=== PATIENT | male | born 1985 | race Caucasian/White ===

== ENCOUNTER 2016-07-02 00:59 | Emergency (ER) | payer MEDICAID ==
[~2016-07-02] VITALS: Ht 170.2 cm; Wt 76.0 kg
[2016-07-02 01:03] VITALS: Ht 170.2 cm; Wt 76.0 kg
[2016-07-02] MEDS ORDERED: SULF1TAB31 PO (02:24)
[2016-07-02] MEDS ORDERED: MUPI22OI2 TOP (02:24)
[2016-07-02] MEDS ORDERED: CEPH-443 PO (02:24)
--- NOTE | 2016-07-02 02:28 | ERD ---
ER Documentation Chief Complaint Date/Time DATE: 07/02/16 TIME: 02:25 Chief Complaint cellulitis bilateral thigh possible bug bite HPI 30-year-old male who presents with areas of redness to his bilateral anterior lower extremities. This is been for 6 days. He states he was working in the garden he thinks he got bit by something and since then it has been very itchy and he has been scratching at it and now believes it is infected. Denies any fever. He does state he has had some drainage from it. He is ambulatory. Pain is mild to moderate throbbing in nature. ROS All systems reviewed and are negative except as per history of present illness. Medications Home Meds Active Scripts Cephalexin* (Keflex*) 500 Mg Capsule, 500 MG PO QID for 7 Days, CAP Prov:REMINGTON WINSLOW PA-C 07/02/16 Mupirocin* (Bactroban*) 2% -22 Gram Oint...g., 1 APPLIC TOP BID for 7 Days, EA Prov:REMINGTON WINSLOW PA-C 07/02/16 Sulfamethoxazole/Trimethoprim* (Bactrim Ds* Tablet) 1 Each Tablet, 1 TAB PO BID , #14 TAB Prov:REMINGTON WINSLOW PA-C 07/02/16 Allergies Allergies: Coded Allergies: No Known Allergy (Unverified , 07/02/16) FmHx Family History: No diabetes Physical Exam Vitals Vital Signs Date Time Temp Pulse Resp B/P Pulse Ox O2 Delivery O2 Flow Rate FiO2 07/02/16 01:03 98.7 97 20 173/104 99 Physical Exam Const: [] Head: Atraumatic Eyes: Normal Conjunctiva ENT: Normal External Ears, Nose and Mouth. Neck: Full range of motion..~ No meningismus. Resp: Clear to auscultation bilaterally Cardio: Regular rate and rhythm, no murmurs Abd: Soft, non tender, non distended. Normal bowel sounds Skin: Bilateral anterior lower extremities have multiple areas of excoriation , mild purulent drainage, mild surrounding erythema, mild warmth Procedures/MDM Patient presents with multiple infected wounds on his bilateral lower extremities secondary to scratching at them so much. He thinks he originally from a bug bite 6 days ago when he was in the garden. He is afebrile. Patient' s blood pressure was elevated (>120/80) but appears stable without evidence of hypertension emergency. The patient was counseled about the risks of hypertension and urged to pursue outpatient monitoring and therapy within a week with their primary care physician. Patient was discharged with Keflex, Bactrim, and antibiotic ointment to apply. Recommended this patient follow up with her primary care doctor within 48 hours or return to the emergency room for any worsening of symptoms. However this time I do believe there is suitable for outpatient management. I answered all their questions and they agreed with the plan and were discharged home. Departure Diagnosis: Primary Impression: Infected wound Condition: Stable Patient Instructions: Cellulitis Additional Instructions: Llame al doctor MAANA y ana gautam MARCK PARA DENTRO DE 1-2 MONTEMAYOR.Dgale a la secretaria que nosotros le instruimos hacer esta marck.Avise o llame si thakur condicin se empeora antes de la marck. Regresa aqui si peor o no mejor. REMINGTON WINSLOW PA-C July 02, 2016 02:28
== END 2016-07-02 02:35 | disposition home or self-care (01) ==
LOC: FTE 00:59
DX: L08.9 Local infection of the skin and subcutaneous tissue, unspecified (principal)
CPT/HCPCS: 99284

== ENCOUNTER 2016-07-18 09:36 | Emergency (ER) | payer MEDICAID ==
[~2016-07-18] VITALS: Ht 162.6 cm; Wt 70.5 kg
[~2016-07-18 09:36] MED LIST: CEPH-443 PO; MUPI22OI2 TOP; SULF1TAB31 PO
[2016-07-18 09:40] VITALS: Ht 162.6 cm; Wt 70.5 kg
[2016-07-18] MEDS ORDERED: ONDANSETRON (ODT) 4 MG TAB ODT STA (10:30)
--- NOTE | 2016-07-18 10:37 | ERD ---
ER Documentation Chief Complaint Date/Time DATE: 07/18/16 TIME: 10:36 Chief Complaint vomiting HPI Is a 30-year-old male here with complaints of vomiting 2-3 times nonbilious nonbloody yesterday after eating out. 3 family members with similar complaints only the same thing. No fevers no chills. No abdominal pain. Patient also has what looks to be a skin bacterial skin rash that was treated last week. He said he ran out of the medication skin rash reappeared. Says it is very itchy. No other current issues. ROS All systems reviewed and are negative except as per history of present illness. Medications Home Meds Active Scripts Cephalexin* (Keflex*) 500 Mg Capsule, 500 MG PO QID for 7 Days, CAP Prov:REMINGTON WINSLOW PA-C 07/02/16 Mupirocin* (Bactroban*) 2% -22 Gram Oint...g., 1 APPLIC TOP BID for 7 Days, EA Prov:REMINGTON WINSLOW PA-C 07/02/16 Sulfamethoxazole/Trimethoprim* (Bactrim Ds* Tablet) 1 Each Tablet, 1 TAB PO BID , #14 TAB Prov:REMINGTON WINSLOW PA-C 07/02/16 Allergies Allergies: Coded Allergies: No Known Allergy (Unverified , 07/02/16) PMhx/Soc Medical and Surgical Hx: pt denies Medical Hx, pt denies Surgical Hx Hx Alcohol Use: No Hx Substance Use: No Hx Tobacco Use: No Smoking Status: Never smoker Physical Exam Vitals Vital Signs Date Time Temp Pulse Resp B/P Pulse Ox O2 Delivery O2 Flow Rate FiO2 07/18/16 09:40 98.5 99 20 150/89 99 Physical Exam Const: [] Head: Atraumatic Eyes: Normal Conjunctiva ENT: Normal External Ears, Nose and Mouth. Neck: Full range of motion..~ No meningismus. Resp: Clear to auscultation bilaterally Cardio: Regular rate and rhythm, no murmurs Abd: Soft, non tender, non distended. Normal bowel sounds Skin: Erythematous excoriations on bilateral thighs. No active bleeding noted. Back: No midline or flank tenderness Ext: No cyanosis, or edema Neur: Awake and alert Psych: Normal Mood and Affect Results 24 hrs Current Medications Medications (Trade) Dose Ordered Sig/Christin Route PRN Reason Start Time Stop Time Status Last Admin Dose Admin Ondansetron HCl (Zofran Odt) 4 mg ONCE STAT ODT 07/18/16 10:30 07/18/16 10:31 DC 07/18/16 10:33 Procedures/MDM Medical decision-making: Very pleasant 30-year-old male has gastroenteritis. He has had a separate issue of this skin rash. Patient was started on clindamycin and Bactrim along with topical Polytrim. Follow-up with PCP. Return for worsening symptoms. Return 8 hours for serial abdominal exams. Departure Diagnosis: Primary Impression: Gastroenteritis Additional Impression: Bacterial skin infection Condition: Stable CARLY TORRES July 18, 2016 10:37
[2016-07-18] MEDS ORDERED: SULF1TAB31 PO (10:44)
[2016-07-18] MEDS ORDERED: BACI28.421 TOP (10:44)
[2016-07-18] MEDS ORDERED: DICY10CA60 PO (10:44)
[2016-07-18] MEDS ORDERED: CLIN-73 PO (10:44)
[2016-07-18] MEDS ORDERED: ONDA4TAB14 PO (10:44)
== END 2016-07-18 10:59 | disposition home or self-care (01) ==
LOC: E/R 09:36
DX: K52.9 Noninfective gastroenteritis and colitis, unspecified (principal); L08.89 Other specified local infections of the skin and subcutaneous tissue
CPT/HCPCS: Z7502; Z7610; 99284

== ENCOUNTER 2016-09-23 19:10 | Emergency (ER) | payer MEDICAID ==
[~2016-09-23] VITALS: Ht 162.6 cm; Wt 75.5 kg
[~2016-09-23 19:10] MED LIST changes: +BACI28.421 TOP; +CLIN-73 PO; +DICY10CA60 PO; +ONDA4TAB14 PO
[2016-09-23 19:14] VITALS: Ht 162.6 cm; Wt 75.5 kg
[2016-09-23] MEDS ORDERED: MUPI22OI2 TOP (19:34)
--- NOTE | 2016-09-23 19:37 | ERD ---
ER Documentation Chief Complaint Date/Time DATE: 09/23/16 TIME: 19:34 Chief Complaint wants infected wound to be checked. Completed PO antibiotic HPI Patient is a 30-year-old male who has rash on his bilateral lower extremities and upper extremities he has had several months. He has completed courses of Bactrim, Keflex, and clindamycin. He states he last completed the medication 1 week ago. He has states that the medication helped but it did not go away completely. He denies any fever, bleeding, drainage. Rash is itchy. ROS All systems reviewed and are negative except as per history of present illness. Medications Home Meds Active Scripts Mupirocin* (Bactroban*) 2% -22 Gram Oint...g., 1 APPLIC TOP BID for 7 Days, EA Prov:REMINGTON WINSLOW PA-C 09/23/16 Bacitracin-Polymyxin* (Double Antibiotic Oint*) 28.4 Gm Oint...g., 1 APPLIC TOP TID for 10 Days, EA Prov:CARLY TORRES S. 07/18/16 Ondansetron (Ondansetron Odt) 4 Mg Tab.rapdis, 4 MG PO Q6H Y for NAUSEA AND/OR VOMITING, #10 TAB Prov:CARLY TORRES S. 07/18/16 Clindamycin Hcl* (Clindamycin Hcl*) 300 Mg Capsule, 300 MG PO TID for 10 Days, CAP Prov:CARLY TORRES S. 07/18/16 Dicyclomine Hcl* (Bentyl*) 10 Mg Capsule, 10 MG PO QID, #10 CAP Prov:CARLY TORRES S. 07/18/16 Sulfamethoxazole/Trimethoprim* (Bactrim Ds* Tablet) 1 Each Tablet, 1 TAB PO BID , #14 TAB Prov:CARLY TORRES S. 07/18/16 Cephalexin* (Keflex*) 500 Mg Capsule, 500 MG PO QID for 7 Days, CAP Prov:REMINGTON WINSLOW PA-C 07/02/16 Mupirocin* (Bactroban*) 2% -22 Gram Oint...g., 1 APPLIC TOP BID for 7 Days, EA Prov:REMINGTON WINSLOW PA-C 07/02/16 Sulfamethoxazole/Trimethoprim* (Bactrim Ds* Tablet) 1 Each Tablet, 1 TAB PO BID , #14 TAB Prov:REMINGTON WINSLOW CESAR 07/02/16 Allergies Allergies: Coded Allergies: No Known Allergy (Unverified , 09/23/16) PMhx/Soc Medical and Surgical Hx: pt denies Medical Hx, pt denies Surgical Hx Hx Alcohol Use: No Hx Substance Use: No Hx Tobacco Use: No Smoking Status: Never smoker FmHx Family History: No diabetes Physical Exam Vitals Vital Signs Date Time Temp Pulse Resp B/P Pulse Ox O2 Delivery O2 Flow Rate FiO2 09/23/16 19:14 98.2 110 20 154/95 99 Physical Exam Const: [] Head: Atraumatic Eyes: Normal Conjunctiva ENT: Normal External Ears, Nose and Mouth. Neck: Full range of motion..~ No meningismus. Resp: Clear to auscultation bilaterally Cardio: Regular rate and rhythm, no murmurs Abd: Soft, non tender, non distended. Normal bowel sounds Skin: Erythematous excoriations on bilateral thighs. No active bleeding noted. Procedures/MDM Patient presents with a rash. It does not appear infected at this time antibiotic cream. He should follow-up with primary care for referral to dermatology. Patient counseled regarding my diagnostic impression and care plan. Prior to discharge all questions answered. Pt agrees with treatment plan and understands strict return precautions. Pt is instructed to follow up with primary care provider within 24-48 hours. Precautionary instructions provided including instructions to return to the ER if not improving or for any worsening or changing symptoms or concerns. Departure Diagnosis: Primary Impression: Encounter for wound re-check Condition: Stable Patient Instructions: Wound Care [facility]: [facility] se hernandez hecho un examen mdico de control que le indica que no est en gautam condicin que requiera tratamiento urgente en el Departamento de Emergencia. Un estudio ms profundo y el tratamiento de summers condicin pueden esperar sin ningn riesgo hasta que usted sea atendida/o en el consultorio de summers mdico o gautam cl mindy. Es responsabilidad suya arreglar gautam marck para el seguimiento del reji. MANEJO DE CONDICIONES NO URGENTES EN EL FUTURO 1) Si usted tiene un mdico de atencin primaria: Usted debera llamar a summers mdico de atencin primaria antes de venir al departamento de emergencia. Despus de las horas de consultorio, summers doctor o summers asociado/a est disponible por telfono. El mdico o enfermero de felisa en el servicio telefnico puede asesorarle por evette medio para atender el problema, o reji contrario se puede programar gauatm marck. 2) Si usted no tiene un mdico de atencin primaria: Llame al mdico o clnica de referencia que aparece abajo russell las horas de consultorio para hacer gautam marck para que le vean. CLINICAS: [facility] [phone] [id number] [facility] [phone] [facility] [phone] [facility] [facility] [phone] [facility]. [facility] [phone] [address] [facility] [phone] [address] Additional Instructions: Specialist:Usted tiene gautam condicin mdica que requiere que evelia a un especialista dentro de los prximos 1-2 pemberton.POR FAVOR,CON SUMMERS SEGUIMIENTO DE PRIMARIA PHSICIAN refferal. SI USTED NO TIENE UN MDICO GENERAL Y / O USTED NO PUEDE PAGAR emily a un mdico,los siguientes hernandez RECURSOS sido suministrado a usted. ES SUMMERS RESPONSABILIDAD PARA SER VISTOS POR EL ESPECIALISTA: Dermotolgist Llame al doctor MAANA y ana gautam MARCK PARA DENTRO DE 1-2 MONTEMAYOR.Dgale a la secretaria que nosotros le instruimos hacer esta marck.Avise o llame si summers condicin se empeora antes de la marck. Regresa aqui si peor o no mejor. REMINGTON WINSLOW PA-C Sep 23, 2016 19:36
== END 2016-09-23 19:39 | disposition home or self-care (01) ==
LOC: FTE 19:10
DX: Z48.00 Encounter for change or removal of nonsurgical wound dressing (principal)
CPT/HCPCS: 99283

== ENCOUNTER 2016-11-21 02:31 | Emergency (ER) | payer MEDICAID ==
[~2016-11-21] VITALS: Ht 162.6 cm; Wt 75.0 kg
[2016-11-21 02:36] VITALS: Ht 162.6 cm; Wt 75.0 kg
[2016-11-21] MEDS ORDERED: CLIN-73 PO (04:41)
--- NOTE | 2016-11-21 04:58 | ERD ---
ER Documentation Chief Complaint Date/Time DATE: 11/21/16 TIME: 04:56 Chief Complaint non healing multiple wounds on upper augustina extremities for 2 mos HPI 31-year-old male presents here in emergency department for complaints of multiple wounds and upper extremities itching, redness and swelling surrounding it, pain upon touching the area. Patient is complaining of pain, sharp pain 4/ 10 scale, as was upon touching the area, has some discharge coming from some of the areas. Patient states that it has been itchy and he was speaking on it. Patient has had the symptoms on and off for the last 2 months. ROS All systems reviewed and are negative except as per history of present illness. Medications Home Meds Active Scripts Clindamycin Hcl* (Clindamycin Hcl*) 300 Mg Capsule, 300 MG PO TID for 10 Days, CAP Prov:AFRICA CUBA NP 11/21/16 Mupirocin* (Bactroban*) 2% -22 Gram Oint...g., 1 APPLIC TOP BID for 7 Days, EA Prov:REMINGTON WINSLOW PA-C 09/23/16 Bacitracin-Polymyxin* (Double Antibiotic Oint*) 28.4 Gm Oint...g., 1 APPLIC TOP TID for 10 Days, EA Prov:CARLY TORRES S. 07/18/16 Ondansetron (Ondansetron Odt) 4 Mg Tab.rapdis, 4 MG PO Q6H Y for NAUSEA AND/OR VOMITING, #10 TAB Prov:CARLY TORRES S. 07/18/16 Clindamycin Hcl* (Clindamycin Hcl*) 300 Mg Capsule, 300 MG PO TID for 10 Days, CAP Prov:CARLY TORRES S. 07/18/16 Dicyclomine Hcl* (Bentyl*) 10 Mg Capsule, 10 MG PO QID, #10 CAP Prov:CARLY TORRES S. 07/18/16 Sulfamethoxazole/Trimethoprim* (Bactrim Ds* Tablet) 1 Each Tablet, 1 TAB PO BID , #14 TAB Prov:CARLY TORRES S. 07/18/16 Cephalexin* (Keflex*) 500 Mg Capsule, 500 MG PO QID for 7 Days, CAP Prov:REMINGTON WINSLOW PA-C 07/02/16 Mupirocin* (Bactroban*) 2% -22 Gram Oint...g., 1 APPLIC TOP BID for 7 Days, EA Prov:REMINGTON WINSLOW CESAR 07/02/16 Sulfamethoxazole/Trimethoprim* (Bactrim Ds* Tablet) 1 Each Tablet, 1 TAB PO BID , #14 TAB Prov:REMINGTON WINSLOW CESAR 07/02/16 Allergies Allergies: Coded Allergies: No Known Allergy (Unverified , 09/23/16) PMhx/Soc Medical and Surgical Hx: pt denies Medical Hx, pt denies Surgical Hx History of Surgery: No Anesthesia Reaction: No Hx Neurological Disorder: No Hx Respiratory Disorders: No Hx Cardiac Disorders: No Hx Psychiatric Problems: No Hx Miscellaneous Medical Probl: No Hx Alcohol Use: No Hx Substance Use: No Hx Tobacco Use: No Smoking Status: Never smoker FmHx Family History: No coronary disease, No diabetes, No other Physical Exam Vitals Vital Signs Date Time Temp Pulse Resp B/P Pulse Ox O2 Delivery O2 Flow Rate FiO2 11/21/16 02:36 98.9 103 20 142/96 100 Physical Exam GENERAL: The patient is well developed and appropriate for usual state of health, in no apparent distress. CHEST: Clear to auscultation bilaterally. There are no rales, wheezes or rhonchi. HEART: Regular rate and rhythm. No murmurs, clicks, rubs or gallops. No S3 or S4. ABDOMEN: Soft, nontender and nondistended. Good bowel sounds. No rebound or guarding. No gross peritonitis. No gross organomegaly or masses. No Faulkner sign or McBurney point tenderness. BACK: No midline or flank tenderness. EXTREMITIES: Equal pulses bilaterally. There is no peripheral clubbing, cyanosis or edema. No focal swelling or erythema. Full range of motion. Grossly neurovascularly intact. NEURO: Alert and oriented. Cranial nerves 2-12 intact. Motor strength in all 4 extremities with 5/5 strength. Sensation grossly intact. Normal speech and gait. SKIN:lesions in upper extremities with excoriation, erythema surrounding the area, no fluctuance noted. There is no apparent ecchymosis or petechia. The skin is warm and dry. HEMATOLOGIC AND LYMPHATIC: There is no evidence of excessive bruising or lymphedema. No gross cervical, axillary, or inguinal lymphadenopathy. Procedures/MDM Medical decision making: Patient symptoms most likely is consistent with MRSA skin infection. No symptoms of any abscess at this time, no cellulitis, no symptoms of any contagious rash at this time. Patient was given for clindamycin , was advised to follow-up with primary care doctor in 2-3 days for reevaluation of symptoms. Patient was advised to return to emergency department for any worsening symptoms. Disposition: Home. Stable. Departure Diagnosis: Primary Impression: Infection of skin due to methicillin resistant Staphylococcus ... Condition: Stable Patient Instructions: Mrsa Skin Infection, Suspected Or Confirmed AFRICA CUBA NP Nov 21, 2016 04:58
== END 2016-11-21 05:03 | disposition home or self-care (01) ==
LOC: FTE 02:31
DX: L08.89 Other specified local infections of the skin and subcutaneous tissue (principal); A49.02 Methicillin resistant Staphylococcus aureus infection, unspecified site
CPT/HCPCS: 99283

== ENCOUNTER 2017-03-02 23:04 | Emergency (ER) | END 2017-03-03 03:25 | disposition home or self-care (01) ==

== ENCOUNTER 2017-06-04 03:05 | Emergency (ER) | END 2017-06-04 04:55 | disposition home or self-care (01) ==

== ENCOUNTER 2018-02-18 02:36 | Emergency (ER) | payer MEDICAID ==
[~2018-02-18] VITALS: Ht 165.1 cm; Wt 77.2 kg
[~2018-02-18 02:36] MED LIST changes: -CLIN-73 PO; +CLIN300C10 PO; +DICY10CA40 PO; -DICY10CA60 PO
[2018-02-18 02:41] VITALS: BP 150/81; PULSE 102; RESP 20; Ht 165.1 cm; Wt 77.2 kg
[2018-02-18] MEDS ORDERED: MUPI22OI2 TOP (02:58)
--- NOTE | 2018-02-18 03:40 | ERD ---
ER Documentation Chief Complaint Chief Complaint rash lower lip/chin x 2 days HPI 32-year-old male presenting with rash to lower chin and left lip. Patient applied creams to site but does not recall the name of the cream. He denies any pain. He has never had this before. Denies fever. Denies other medical probl ems. NKDA. Surgical history denies. Social history denies ROS All systems reviewed and are negative except as per history of present illness. Medications Home Meds Active Scripts Mupirocin* (Bactroban*) 2% -22 Gram Oint...g., 1 APPLIC TOP BID for 7 Days, EA Prov:JAVIER AUSTIN PA-C 02/18/18 Mupirocin* (Bactroban*) 2% -22 Gram Oint...g., 1 APPLIC TOP BID for 7 Days, #1 TUB Prov:CARLY BURROWS PA-C 06/04/17 Sulfamethoxazole/Trimethoprim* (Bactrim Ds* Tablet) 1 Each Tablet, 1 TAB PO BID, #14 TAB Prov:CARLY BURROWS PA-C 06/04/17 Cephalexin* (Keflex*) 500 Mg Capsule, 500 MG PO TID for 7 Days, #21 CAP Prov:CARLY BURROWS PA-C 06/04/17 Cephalexin* (Keflex*) 500 Mg Capsule, 500 MG PO QID for 10 Days, CAP Prov:ROBERTO BAUMAN PA-C 03/03/17 Sulfamethoxazole/Trimethoprim* (Bactrim Ds* Tablet) 1 Each Tablet, 1 TAB PO BID for 10 Days, TAB Prov:ROBERTO BAUMAN PA-C 03/03/17 Clindamycin Hcl* (Clindamycin Hcl*) 300 Mg Capsule, 300 MG PO TID for 10 Days, CAP Prov:AFRICA CUBA NP 11/21/16 Mupirocin* (Bactroban*) 2% -22 Gram Oint...g., 1 APPLIC TOP BID for 7 Days, EA Prov:REMINGTON WINSLOW PA-C 09/23/16 Bacitracin-Polymyxin* (Double Antibiotic Oint*) 28.4 Gm Oint...g., 1 APPLIC TOP TID for 10 Days, EA Prov:CARLY TORRES. 07/18/16 Ondansetron (Ondansetron Odt) 4 Mg Tab.rapdis, 4 MG PO Q6H PRN for NAUSEA AND/OR VOMITING, #10 TAB Prov:CARLY TORRES. 07/18/16 Clindamycin Hcl* (Clindamycin Hcl*) 300 Mg Capsule, 300 MG PO TID for 10 Days, CAP Prov:CARLY TORRES. 07/18/16 Dicyclomine HCl (Dicyclomine HCl) 10 Mg Capsule, 10 MG PO QID, #10 CAP Prov:CARLY TORRES. 07/18/16 Sulfamethoxazole/Trimethoprim* (Bactrim Ds* Tablet) 1 Each Tablet, 1 TAB PO BID, #14 TAB Prov:CARLY TORRES. 07/18/16 Cephalexin* (Keflex*) 500 Mg Capsule, 500 MG PO QID for 7 Days, CAP Prov:REMINGTON WINSLOW PA-C 07/02/16 Mupirocin* (Bactroban*) 2% -22 Gram Oint...g., 1 APPLIC TOP BID for 7 Days, EA Prov:REMINGTON WINSLOW PA-C 07/02/16 Sulfamethoxazole/Trimethoprim* (Bactrim Ds* Tablet) 1 Each Tablet, 1 TAB PO BID, #14 TAB Prov:REMINGTON WINSLOW PA-C 07/02/16 Allergies Allergies: Coded Allergies: No Known Allergy (Unverified , 03/02/17) PMhx/Soc History of Surgery: No Anesthesia Reaction: No Hx Neurological Disorder: No Hx Respiratory Disorders: No Hx Cardiac Disorders: No Hx Psychiatric Problems: No Hx Miscellaneous Medical Probl: Yes (cellulitis) Hx Alcohol Use: No Hx Substance Use: Yes (crystal meth) Hx Tobacco Use: No FmHx Family History: No diabetes, No coronary disease, No other Physical Exam Vitals Vital Signs Date Temp Pulse Resp B/P (MAP) Pulse Ox O2 O2 Flow FiO2 Time Delivery Rate 02/18/18 98.1 102 20 150/81 98 02:41 (104) Physical Exam GENERAL: The patient is well-appearing, well-nourished, in no acute distress HEENT: Atraumatic. Conjunctivae are pink. Pupils equal, round, and reactive to light. There is no scleral icterus. Tympanic membranes clear bilaterally. Oropharynx clear. CHEST: Clear to auscultation bilaterally. There are no rales, wheezes or rhonchi. HEART: Regular rate and rhythm. No murmurs, clicks, rubs or gallops. No S3 or S4. SKIN: Crusted yellow rash noted to lower chin. No purulence. Procedures/MDM MDM: 32-year-old male presenting with findings consistent with impetigo. I have low suspicion for life-threatening rash. I have low suspicion for viral infection. Patient will be discharged with supportive medications and told to follow-up with primary care within 1-2 days for close evaluation. Patient is told symptoms change or worsen to immediately return to the ER. All questions answered at discharge Departure Diagnosis: Primary Impression: Impetigo Condition: Stable Patient Instructions: Impetigo Referrals: [facility] YOU HAVE RECEIVED A MEDICAL SCREENING EXAM AND THE RESULTS INDICATE THAT YOU DO NOT HAVE A CONDITION THAT REQUIRES URGENT TREATMENT IN THE EMERGENCY DEPARTMENT. FURTHER EVALUATION AND TREATMENT OF YOUR CONDITION CAN WAIT UNTIL YOU ARE SEEN IN YOUR DOCTORS OFFICE WITHIN THE NEXT 1-2 DAYS. IT IS YOUR RESPONSIBILITY TO MAKE AN APPOINTMENT FOR FOLOW-UP CARE. IF YOU HAVE A PRIMARY DOCTOR --you should call your primary doctor and schedule an appointment IF YOU DO NOT HAVE A PRIMARY DOCTOR YOU CAN CALL OUR PHYSICIAN REFERRAL HOTLINE AT IF YOU CAN NOT AFFORD TO SEE A PHYSICIAN YOU CAN CHOSE FROM THE FOLLOWING [facility] [address] [facility] [facility] [address] [address] [facility] [address] [facility] [facility] [address] [facility]. [facility]. [address] Additional Instructions: FOLLOW UP WITH YOUR PRIMARY CARE PHYSICIAN TOMORROW.Return to this facility if you are not improving as expected. JAVIER AUSTIN PA-C Feb 18, 2018 03:40
== END 2018-02-18 03:27 | disposition home or self-care (01) ==
LOC: FTE 02:36
DX: L01.00 Impetigo, unspecified (principal)
CPT/HCPCS: 99283